=== PATIENT | female | born 1980 | race Caucasian/White ===

== ENCOUNTER 2022-05-28 07:01 | Day surgery (SDC) | payer OTHER ==
[2022-05-28] VITALS (250 sets, daily range): BP systolic 84–146; BP diastolic 56–93
[~2022-05-28] VITALS: Ht 165.1 cm; Wt 54.5 kg
--- NOTE | 2022-05-28 07:01 | NUR ---
Patient arrived to the ANR suite, identification and demographics confirmed. Patient to room 8, AAO, ambulatory, vitals obtained, ID/allergy/fall bands placed, changed into hospital gown, EDDIE hose, and non-slip socks. Procedure and timeline explained for treatment and discharge. All questions answered and the patient presents no concerns at this time.
--- NOTE | 2022-05-28 07:15 | NUR ---
Dr. Rivera telephoned with patient intake information including usage, dose, last dose/time taken and initial vital signs. Patient history and allergies reviewed with MD. Orders received for 10 mg PO Valium and 0.2 mg PO Clonidine now. Will reassess per protocol in 1.5 hours and update MD with assessment and vitals.
[2022-05-28 08:15] LABS: BASO% 0.8 % (0-3); EOS% 7.8 % (0-8); HEMATOCRIT 40.3 % (37.0-47.0); HEMOGLOBIN 12.8 g/dl (12.0-16.0); IMMATURE GRANULOCYTES 0.3 % (0.0-5.0); LYMPH% 35.2 % (15-41); MEAN CELL VOLUME 97.3 fL CALC (80.0-100.0); MEAN CORPUSCULAR HGB 30.9 pG CALC (26.0-32.0); MEAN CORPUSCULAR HGB CONC 31.8 g/dL CAL (32.0-36.0); MONO% 6.3 % (2-13); NEUT# 3.67 thou/uL (2.00-7.15); NEUT% 49.6 % (42-76); RED BLOOD COUNT 4.14 mill/uL (4.20-5.60); RED CELL DISTRI WIDTH 12.4 % (11.5-15.5)
[2022-05-28 08:31] LABS: ALBUMIN 3.9 g/dL (3.2-5.0); ALKALINE PHOSPHATASE 44 u/l (38-126); ANION GAP 9 (6-22 (CALC)); BUN 12 mg/dL (7-17); BUN/CREATININE RATIO 15 (12-20 (CALC)); CARBON DIOXIDE 28 mmol/l (22-30); CHLORIDE 104 mmol/l (95-108); CREATININE 0.8 mg/dL (0.5-1.0); GFR FOR AFR.AMER. > 60 ML/MIN (>=60 (CALC)); GFR OTHER RACES > 60 ML/MIN (>=60 (CALC)); POTASSIUM 3.8 mmol/l (3.5-5.1); SGOT/AST 26 u/l (14-36); SODIUM 138 mmol/l (137-146); TOTAL PROTEIN 6.6 g/dL (6.3-8.2)
--- NOTE | 2022-05-28 09:30 | NUR ---
Patient resting comfortably in bed. Easily aroused, maintains focus, and drifts back to sleep. No signs of active withdrawal or distress noted at this time. Continuous SPO2, rhythm, and respiratory monitoring initiated. IVF @ 250 mL/HR, room air, VSS.
--- NOTE | 2022-05-28 11:50 | NUR ---
Induction Note Patient to ANR procedure room. Time out performed at 1150. Patient placed on monitors, Awais hugger, bilateral wrist restraints applied for ET tube protection. Versed 5mg given IV push at 1159 Tourniquet applied to right arm Lidocaine 100mg given at 1200 IV push followed by Rocoronium 10mg at 1200 IV push and held for 90 seconds. Propofol bolus of 160mg given at 1201 IV push. Succinylcholine 80mg given IV push at 1202. Smooth intubation with 7.5 ETT. Positive CO2. Positive Auscultation for air exchange. Patient placed on ventilator for spontaneous ventilation. Placed on Propofol IV drip at 1203. OG inserted. Positive air on auscultation. Positive gastric content. Stomach washed at this time. Naltrexone 50mg given via OG tube with Clonidine 0.1 mg given via OG Tube. OG clamped for 45 minutes. Will monitor patient for symptoms of withdrawal and adjust propfol accordingly.
--- NOTE | 2022-05-28 13:00 | NUR ---
OG open note OG open at this time. Gastric content draining into drainage bag. OG to drain for 45 minutes. Propofol will be titrated down based on patient.
--- NOTE | 2022-05-28 13:45 | NUR ---
OG close note Stomach washed at this time. Naltrexone 50 mg with Clonidine 0.1 mg via OG tube. OG will be clamped for 45 minutes.
[2022-05-28] MEDS ORDERED: NALTREXONE50 MG PO (14:28)
[2022-05-28] MEDS ORDERED: CLONIDINE0.1 MG PO (14:29)
[2022-05-28] MEDS ORDERED: KLONOPIN2 MG PO (14:29)
--- NOTE | 2022-05-28 15:15 | NUR ---
OG close note Stomach washed at this time. Naltrexone 50 mg with Clonidine 0.1 mg via OG tube. OG will be clamped for 45 minutes.
--- NOTE | 2022-05-28 16:45 | NUR ---
OG close note Stomach washed at this time. Naltrexone 12.5mg via OG tube. OG will be clamped for 30 minutes.
--- NOTE | 2022-05-28 17:15 | NUR ---
OG open note OG open at this time. Gastric content draining into drainage bag. OG to drain for 30 minutes. Propofol will be titrated down based on patient.
--- NOTE | 2022-05-28 18:22 | NUR ---
Extubation note Closing medications given Benadryl 50mg IV push, Decadron 10mg IV push,Magnesium 4 grams IV, Zofran 8mg IV push, Octreotide 100mcg SC. Stomach washed out prior to extubation. Suctioned gastric content. OG removed. Patient extubated. Propofol Discontinued. Wrist restraints removed. Awais hugger Removed. See ANR Moderate sedate recovery record for further notes and assessment.
--- NOTE | 2022-05-28 19:25 | NUR ---
RECEIVED PATIENT TO ROOM 288 VIA STRETCHER. BEDSIDE REPORT RECEIVED FROM DAMIR SHEETS. PATIENT RESTING QUIETLY. VSS, 2L/NC. LR INFUSING @ 125ML TO LAC; SITE PATENT, NO REDNESS OR SWELLING NOTED. NO DISTRESS NOTED AT THIS TIME. BED IN LOW POSITION, LOCKED AND BED ALARM ACTIVATED.
[2022-05-29 00:36] VITALS: BP 118/86
--- NOTE | 2022-05-29 00:51 | NUR ---
PATIENT MILDLY AGITATED AND CLIMBING FROM BED. ALSO APPEARS TO HAVE HALLUCINATIONS. ATIVAN 1MG IVP GIVEN. VSS, NO DISTRESS NOTED. BED ALARM ACTIVE.
[2022-05-29 03:39] VITALS: BP 132/69
--- NOTE | 2022-05-29 04:35 | NUR ---
PATIENT REMAINS RESTLESS. DID NOT SLEEP DURING THE NIGHT. MEDS ADMINISTERED ORDER. VSS, NO DISTRESS NOTED AT THIS TIME. CALL LIGHT WITHIN REACH. BED ALARM ACTIVE
[2022-05-29 05:39] LABS: ALBUMIN 4.4 g/dL (3.2-5.0); ALKALINE PHOSPHATASE 51 u/l (38-126); ANION GAP 16 (6-22 (CALC)); BASO% 0.2 % (0-3); BUN 9 mg/dL (7-17); BUN/CREATININE RATIO 14 (12-20 (CALC)); CARBON DIOXIDE 24 mmol/l (22-30); CHLORIDE 105 mmol/l (95-108); CREATININE 0.7 mg/dL (0.5-1.0); GFR FOR AFR.AMER. > 60 ML/MIN (>=60 (CALC)); GFR OTHER RACES > 60 ML/MIN (>=60 (CALC)); HEMATOCRIT 42.2 % (37.0-47.0); HEMOGLOBIN 13.9 g/dl (12.0-16.0); IMMATURE GRANULOCYTES 0.2 % (0.0-5.0); LYMPH% 6.8 % (15-41); MAGNESIUM 1.9 mg/dL (1.6-2.3); MEAN CELL VOLUME 93.4 fL CALC (80.0-100.0); MEAN CORPUSCULAR HGB 30.8 pG CALC (26.0-32.0); MEAN CORPUSCULAR HGB CONC 32.9 g/dL CAL (32.0-36.0); MONO% 1.2 % (2-13); NEUT# 8.3 thou/uL (2.00-7.15); NEUT% 91.6 % (42-76); POTASSIUM 3.8 mmol/l (3.5-5.1); RED BLOOD COUNT 4.52 mill/uL (4.20-5.60); RED CELL DISTRI WIDTH 12.1 % (11.5-15.5); SGOT/AST 45 u/l (14-36); SODIUM 142 mmol/l (137-146); TOTAL PROTEIN 7.4 g/dL (6.3-8.2)
[2022-05-29 05:41] LABS: BILIRUBIN, TOTAL 0.6 mg/dL (0.02-1.3)
--- NOTE | 2022-05-29 07:05 | NUR ---
R'CD REPORT FROM DAMIR FONTAINE. PT IS OBSERVED RESTLESS IN BED, ATTEMPTING TO GET OOB, WILL MEDICATE APPROPRIATELY. PT FOLLOWS SIMPLE COMMANDS WITH DIRECTION, PT HAS RN @ BEDSIDE. WILL CONTINUE TO MONITOR.
[2022-05-29 07:30] VITALS: BP 140/87
--- NOTE | 2022-05-29 08:15 | NUR ---
Dr. Rivera telephoned and updated with overnight events and PRN medications, morning labs and vital signs, ANR attorney at lawfamily assessment worker and current progress on discharge requirements. Expected discharge today. Discharge plan in progress.
--- NOTE | 2022-05-29 08:22 | NUR ---
PT IS SLEEPING, COMFORTABLY. MAINTAINING A LOW STIMULI ENVIRONMENT FOR PT TO PROMOTE ADEQUATE REST. RN MONITORING.
--- NOTE | 2022-05-29 12:00 | NUR ---
PT HAS BEEN ASSISTED TO BSC, PT GAIT IS MORE STEADY THAN THIS A.M. PT IS CONVERSING MORE CLEARLY, PT HAS REQUESTED WATER AND CHAPSTICK, BOTH PROVIDED. PT HAS RN NEARBY, PT BEING MONITORED.
--- NOTE | 2022-05-29 12:30 | NUR ---
Dr. Rivera to bedside for post-procedure evaluation. Report from DAMIR De La Cruz. Discharge process reviewed, discharge requirements discussed with patient including ambulation, tolerance of food and oral fluids, and personal hygeine. Cleared for discharge after 1600.
--- NOTE | 2022-05-29 13:00 | NUR ---
Patient's support person (SP) telephoned with overnight update and to begin discharge planning. All questions answered satisfactorily, no concerns presented. SP agreeable to discharge plan.
[2022-05-29 13:49] VITALS: BP 97/38
--- NOTE | 2022-05-29 16:25 | NUR ---
Patient discharged in stable condition. Reports no nausea, tolerated PO intake, ambulatory with stable gait. IV's removed. Patient remained alert and conversive during discharge teaching. Support person states undestanding of discharge instructions and offers no further questions. Medication education given at length and patient and SP stated understanding.
== END 2022-05-29 16:28 | disposition home or self-care (01) | DRG 897 ==
LOC: MS2 07:01 → ANR 07:01
PROVIDERS: ATTEND Anesthesiology Critical Care Medicine
DX: F11.20 Opioid dependence, uncomplicated (principal)
CPT/HCPCS: J2060; J2354; J3475